=== PATIENT | male | born 1990 | race Two or more races ===

== ENCOUNTER 2019-06-27 07:55 | Emergency (ER) | payer OTHER ==
[~2019-06-27] VITALS: Ht 198.1 cm; Wt 93.1 kg
--- NOTE | 2019-06-27 08:29 | NUR ---
PT. IS A & O X 4 WITH A GCS OF 15. PT. HAS C/O A RASH AND BLISTERS TO BILAT LOWER EXTREMITIES, ONSET X 2 WEEKS AGO. PT. WAS SEEN X 2 AT URGENT CARE AND SENT TO THE ED FOR FURTHER EVALUATION. PT.'S CMS CHECKS ARE INTACT. PT. DOES HAVE A SCATTERED RASH AND BLISTERS PRESENT. PT. STATES HE WAS POSSIBLY EXPOSED TO [place]. DR. ESCOBAR IS AT THE BEDSIDE WITH THE PT. PT. WAS GIVEN A BLANKET FOR WARMTH. CALL LIGHT IS IN REACH.
[2019-06-27 09:05] LABS: BASOPHILS # (AUTO) 0.06 x10^3/uL (0-0.1); BASOPHILS % (AUTO) 1 % (0-1); EOSINOPHILS # (AUTO) 0.25 x10^3/uL (0-0.4); EOSINOPHILS % (AUTO) 3 % (1-7); LYMPHOCYTES # (AUTO) 2.27 x10^3/uL (1-3.4); LYMPHOCYTES % (AUTO) 28 % (22-44); MD NO; MEAN CORPUSCULAR HEMOGLOBIN 31.5 pg (27.5-34.5); MEAN CORPUSCULAR HGB CONC 33.4 g/dL (33.2-36.2); MEAN CORPUSCULAR VOLUME 94.5 fL (81-97); MEAN PLATELET VOLUME 7.2 fL (7.4-10.4); MONOCYTES # (AUTO) 0.68 x10^3/uL (0.2-0.8); MONOCYTES % (AUTO) 8 % (2-9); NEUTROPHILS # (AUTO) 4.96 x10^3/uL (1.8-6.8); NEUTROPHILS % (AUTO) 60 % (42-75); PLATELET COUNT 295 x10^3/uL (130-400); RED BLOOD COUNT 5.08 x10^6/uL (4.38-5.82); RED CELL DISTRIBUTION WIDTH 13.4 % (9.4-14.8)
[2019-06-27 09:17] LABS: ANION GAP 5 mmol/L (5-15); CHLORIDE 106 mmol/L (98-107); CREATININE 0.99 mg/dL (0.7-1.3)
--- NOTE | 2019-06-27 10:13 | NUR ---
PT.'S WOUNDS WERE DRESSED. PT. WAS GIVEN DISCHARGE INSTRUCTIONS AND SCRIPTS WITH UNDERSTANDING VERBALIZED ALONG WITH WILLINGNESS TO COMPLY. PT. WAS AMBULATORY TO THE DISCHARGE DESK, STEADY GAIT. VSS.
[2019-06-27 10:14] VITALS: BP 122/70
== END 2019-06-27 10:16 | disposition home or self-care (01) ==
LOC: ED 09:50
DX: L24.7 Irritant contact dermatitis due to plants, except food (principal)
CPT/HCPCS: 36415; 80048; 85025; 87070; 87205; 99283